=== PATIENT | female | born 1935 | race Caucasian/White ===

== ENCOUNTER 2016-04-08 03:03 | Emergency (ER) | payer OTHER ==
[~2016-04-08] VITALS: Ht 160 cm; Wt 72.3 kg
[~2016-04-08 03:03] MED LIST: ACID CONTROL150 MG PO; AMITIZA24 MICROGR PO; AMLODIPINE BESY10 MG PO; ASPIR 8181 MG PO; ASPIR-LOW81 MG PO; ASPIR-MOX IB T325 MG PO; ASPIRIN81 M2 PO; ATHENOL325 MG PO; ATIVAN0.5 MG PO; ATIVAN1 MG PO; ATORVASTATIN CA20 MG PO; BACTRIM,SEPT1 TABLET PO; BENTYL10 MG PO; BENTYL20 MG PO; BUSPAR10 MG PO; BUSPAR15 MG PO; BUSPAR7.5 MG PO; BUSPIRONE HCL10 MG PO; BUSPIRONE HCL7.5 MG PO; Buspar PO; CALCIUM 600 WI1 EACH PO; CALCIUM600 M1 PO; CARAFATE1 GM PO; CARAFATE100 MG/ML PO; CHILDREN'S ASPI81 M1 PO; CIPRO250 MG PO; CLOPIDOGREL75 MG PO; COLACE100 MG PO; DILAUDID4 MG PO; DOCUSATE SODIU100 MG PO; DONNATAL1 TABLET PO; DRISDOL50000 UNIT PO; DULCOLAX10 MG PR; DUONEB 2.5-0.5 M3 ML AEROSOL; EFFEXOR XR150 MG PO; EFFEXOR XR75 MG PO; EFFEXOR75 MG PO; ERGOCALCIF50000 UNIT PO; FAMOTIDINE20 MG PO; FIORICET,ESG1 TABLET PO; FLAGYL500 MG PO; FLEET ENEMA-AD118 ML PR; FOSAMAX70 MG PO; HYDROCODON-ACE1 EAC7 PO; Halfprin PO; IMDUR30 MG PO; ISOSORBIDE DINI30 MG PO; ISOSORBIDE MONO30 MG PO; KEFLEX500 MG PO; LIPITOR20 MG PO; LOPRESSOR50 MG PO; LORAZEPAM0.5 MG PO; Lipitor PO; Lopressor PO; METOPROLOL SUCC50 MG PO; METOPROLOL TART50 MG PO; METRONIDAZOLE500 MG PO; MIRALAX17 GM PO; MOBIC7.5 MG PO; NICOTINE PATCH1 EAC2 TD; NITROSTAT0.4 MG PO; NITROSTAT0.4 MG SL; Nitrostat,NitroQuick SL; OMEPRAZOLE20 MG PO; ONDANSETRON ODT4 MG PO; OXAYDO5 MG PO; OXYCODONE HCL5 MG PO; PANTOPRAZOLE SO20 MG PO; PEPCID20 MG PO; PERCOCET 5/31 TABLET PO; PHILLIPS'400 MG/5 M PO; PLAVIX75 MG PO; PRILOSEC40 MG PO; PROMETHAZINE HC25 M1 PO; PROTONIX20 MG PO; PROTONIX40 MG PO; Plavix PO; Protonix PO; Proventil,Ventolin H IH; ROXICODONE5 MG PO; SENNA PLUS TAB1 EACH PO; SENNA8.6 M1 PO; TRAMADOL HCL50 MG PO; TYLENOL REGULA325 MG PO; Tums,OsCal PO; ULTRAM50 MG PO; VENLAFAXINE HC150 M1 PO; VENLAFAXINE HC150 MG PO; VENLAFAXINE HCL75 M3 PO; VICODIN,LORT1 TABLET PO; ZANTAC75 M1 PO; ZOFRAN ODT4 MG PO; Zithromax PO; predniSONE PO
[2016-04-08 03:26] LABS: HEMATOCRIT 49.2 % (36.0-46.0); MCH 29.6 PG (29.0-34.0); MCHC 34.1 G/DL (30.0-36.0); MCV 86.8 FL (83-99); PLATELET COUNT 337 K/uL (156-360); RBC DIS.WIDTH-CV 13.7 % (11.8-14.6); RBC DIS.WIDTH-SD 43.1 % (39-53); RED BLOOD COUNT 5.67 M/uL (3.80-5.20); WHITE BLOOD COUNT 8.5 K/uL (4.1-10.2)
[2016-04-08 03:35] LABS: CHLORIDE 105 mEq/L (99-109); POTASSIUM 3.5 mEq/L (3.7-5.4); SODIUM 142 mEq/L (136-147)
[2016-04-08 03:37] LABS: GLUCOSE 148 mg/dL (70-99)
[2016-04-08 03:38] LABS: ANION GAP 12 MEQ/L (2-14)
[2016-04-08 03:39] LABS: TOTAL BILIRUBIN 0.4 mg/dL (0.0-1.0)
[2016-04-08 03:41] LABS: ALKALINE PHOSPHATASE 190 IU/L (3-129); GFR ESTIMATE (CALCULATED) 39 mL/min/
[2016-04-08 03:42] LABS: UREA NITROGEN (BUN) 15 mg/dL (9-23)
[2016-04-08 09:42] LABS: ADD MIUA? YES; BILIRUBIN NEGATIVE; BLOOD TRACE; COLOR YELLOW ((YELLOW)); GLUCOSE (STRIP) NEGATIVE; KETONES NEGATIVE; LEUKOCYTES SMALL; NITRITE NEGATIVE; PROTEIN (STRIP) TRACE; SPECIFIC GRAVITY 1.021 (1.000-1.030)
[2016-04-08] MEDS ORDERED: CITRATE OF MAG296 ML PO (09:54)
[2016-04-08] MEDS ORDERED: ZOFRAN ODT4 MG PO (09:54)
[2016-04-08 10:08] LABS: BACTERIA NONE SEEN; CASTS NONE SEEN /LPF; CRYSTALS NONE SEEN; EPITHELIAL CELLS RARE; MUCUS NONE SEEN; PATHOLOGICAL CAST NONE SEEN; RED BLOOD CELLS 0-5 /HPF (0-5); SMALL ROUND CELL NONE SEEN; UCUL ADDED? NO; YEAST-LIKE CELL PRESENT
[2016-04-08 10:21] VITALS: BP 143/69
== END 2016-04-08 10:31 | disposition home or self-care (01) ==
LOC: EME 03:03
DX: R10.9 Unspecified abdominal pain (principal); E78.5 Hyperlipidemia, unspecified; I10 Essential (primary) hypertension; I25.2 Old myocardial infarction; F17.200 Nicotine dependence, unspecified, uncomplicated; Z95.5 Presence of coronary angioplasty implant and graft; Z88.0 Allergy status to penicillin; Z91.041 Radiographic dye allergy status
CPT/HCPCS: 74176; 80053; 81003; 85027; 99281; 99284

== ENCOUNTER 2016-05-30 15:41 | Emergency (ER) | payer OTHER ==
[~2016-05-30] VITALS: Ht 160 cm; Wt 70.3 kg
[~2016-05-30 15:41] MED LIST changes: +CITRATE OF MAG296 ML PO
[2016-05-30 16:42] LABS: EOSINOPHIL COUNT 0.4 K/uL (0-0.3); IMMATURE GRANULOCYTE (%) 0.1 % (0.0-0.7); IMMATURE GRANULOCYTE COUNT 0.1 K/uL; LYMPHOCYTE COUNT 1.9 K/uL (1.0-2.8); MCH 29.5 PG (29.0-34.0); MCHC 33.4 G/DL (30.0-36.0); MCV 88.2 FL (83-99); MEAN PLAT.VOLUME 9.5 uM^3 (9.5-12.4); MONOCYTE (%) 7.9 % (3-12); MONOCYTE COUNT 0.7 K/uL (0-0.8); NEUTROPHIL COUNT 5.2 K/uL (1.8-6.4); PLATELET COUNT 292 K/uL (156-360); RBC DIS.WIDTH-CV 12.9 % (11.8-14.6); RBC DIS.WIDTH-SD 40.4 % (39-53); RED BLOOD COUNT 4.65 M/uL (3.80-5.20); WHITE BLOOD COUNT 8.3 K/uL (4.1-10.2)
[2016-05-30 16:50] LABS: CHLORIDE 107 mEq/L (99-109); POTASSIUM 3.9 mEq/L (3.7-5.4); SODIUM 142 mEq/L (136-147)
[2016-05-30 16:52] LABS: GLUCOSE 77 mg/dL (70-99)
[2016-05-30 16:53] LABS: ANION GAP 8 MEQ/L (2-14)
[2016-05-30 16:54] LABS: TOTAL BILIRUBIN 0.2 mg/dL (0.0-1.0)
[2016-05-30 16:56] LABS: ALKALINE PHOSPHATASE 156 IU/L (3-129); GFR ESTIMATE (CALCULATED) 36 mL/min/
[2016-05-30 17:01] LABS: TROP-I INTERPRETATION NEGATIVE; TROPONIN-I < 0.01 ng/mL (0.0-0.30)
[2016-05-30 17:25] LABS: UREA NITROGEN (BUN) 16 mg/dL (9-23)
[2016-05-30 20:31] VITALS: BP 145/68
== END 2016-05-30 20:44 | disposition home or self-care (01) ==
LOC: EME → EDBD 15:41 → EME 20:44
PROVIDERS: Emergency Medicine
DX: R10.13 Epigastric pain (principal); J45.909 Unspecified asthma, uncomplicated; J44.9 Chronic obstructive pulmonary disease, unspecified; E78.5 Hyperlipidemia, unspecified; I10 Essential (primary) hypertension; K21.9 Gastro-esophageal reflux disease without esophagitis; I25.2 Old myocardial infarction; Z98.61 Coronary angioplasty status; F17.200 Nicotine dependence, unspecified, uncomplicated
CPT/HCPCS: 71020; 74020; 74176; 80053; 84484; 85025; 93005; 99281; 99285; J2270; J2405

== ENCOUNTER 2016-10-22 06:46 | Emergency (ER) | payer OTHER ==
[~2016-10-22] VITALS: Ht 160 cm; Wt 72.3 kg
[2016-10-22 07:32] LABS: BASOPHIL COUNT 0.1 K/uL (0-0.1); EOSINOPHIL (%) 5.3 % (0-5); EOSINOPHIL COUNT 0.5 K/uL (0-0.3); HEMATOCRIT 41.7 % (36.0-46.0); IMMATURE GRANULOCYTE (%) 0.2 % (0.0-0.7); LYMPHOCYTE COUNT 2.2 K/uL (1.0-2.8); MCH 28.7 PG (29.0-34.0); MCHC 32.6 G/DL (30.0-36.0); MONOCYTE (%) 8.9 % (3-12); MONOCYTE COUNT 0.8 K/uL (0-0.8); NEUTROPHIL (%) 59.1 % (45-76); PLATELET COUNT 325 K/uL (156-360); RBC DIS.WIDTH-CV 13.2 % (11.8-14.6); RBC DIS.WIDTH-SD 42.5 % (39-53); RED BLOOD COUNT 4.74 M/uL (3.80-5.20); WHITE BLOOD COUNT 8.4 K/uL (4.1-10.2)
[2016-10-22 08:01] LABS: CHLORIDE 106 mEq/L (99-109); POTASSIUM 3.9 mEq/L (3.7-5.4); SODIUM 137 mEq/L (136-147)
[2016-10-22 08:04] LABS: GLUCOSE 106 mg/dL (70-99)
[2016-10-22 08:05] LABS: ANION GAP 7 MEQ/L (2-14)
[2016-10-22 08:06] LABS: TOTAL BILIRUBIN 0.3 mg/dL (0.0-1.0)
[2016-10-22 08:07] LABS: ALKALINE PHOSPHATASE 171 IU/L (3-129); GFR ESTIMATE (CALCULATED) 42 mL/min/
[2016-10-22 08:08] LABS: UREA NITROGEN (BUN) 17 mg/dL (9-23)
[2016-10-22 08:11] LABS: LIPASE 26 U/L (1.0-51.0)
[2016-10-22 08:23] LABS: ADD MIUA? YES; BILIRUBIN NEGATIVE; BLOOD NEGATIVE; COLOR YELLOW ((YELLOW)); GLUCOSE (STRIP) NEGATIVE; KETONES NEGATIVE; LEUKOCYTES MODERATE; NITRITE NEGATIVE; PROTEIN (STRIP) 30; SPECIFIC GRAVITY 1.024 (1.000-1.030); UROBILINOGEN 0.2 MG/DL (0.2-1.0)
[2016-10-22 08:29] LABS: BACTERIA RARE /HPF; CALCIUM OXALATE CRYSTALS 1+ /HPF; EPITHELIAL CELLS RARE /HPF; HYALINE CASTS 0-5 /LPF; MUCUS TRACE /LPF
[2016-10-22] MEDS ORDERED: BENTYL20 MG PO (09:32)
[2016-10-22] MEDS ORDERED: KEFLEX500 MG PO (09:40)
[2016-10-22 11:02] VITALS: BP 164/73
== END 2016-10-22 11:00 | disposition home or self-care (01) ==
LOC: EME 06:46
PROVIDERS: Emergency Medicine
DX: R10.13 Epigastric pain (principal); I10 Essential (primary) hypertension; E78.5 Hyperlipidemia, unspecified; J44.9 Chronic obstructive pulmonary disease, unspecified; K21.9 Gastro-esophageal reflux disease without esophagitis; K59.00 Constipation, unspecified; I25.2 Old myocardial infarction; Z95.5 Presence of coronary angioplasty implant and graft; G89.29 Other chronic pain; F32.9 Major depressive disorder, single episode, unspecified; F41.9 Anxiety disorder, unspecified; F17.200 Nicotine dependence, unspecified, uncomplicated; Z88.0 Allergy status to penicillin
CPT/HCPCS: 80053; 81003; 83690; 85025; 93005; 99281; 99285

== ENCOUNTER 2016-12-03 15:00 | Inpatient (IN) | payer OTHER ==
[~2016-12-03] VITALS: Ht 160 cm; Wt 70.5 kg
[~2016-12-03 15:00] MED LIST changes: -EFFEXOR75 MG PO
[2016-12-03 15:31] LABS: EOSINOPHIL (%) 5.1 % (0-5); EOSINOPHIL COUNT 0.4 K/uL (0-0.3); HEMATOCRIT 47.1 % (36.0-46.0); IMMATURE GRANULOCYTE (%) 0.2 % (0.0-0.7); INSTRUMENT ABS NEUTROPHIL CT 4.9 K/uL; LYMPHOCYTE COUNT 2.5 K/uL (1.0-2.8); MCH 28.9 PG (29.0-34.0); MCHC 32.7 G/DL (30.0-36.0); MCV 88.4 FL (83-99); MEAN PLAT.VOLUME 9.2 uM^3 (9.5-12.4); MONOCYTE (%) 8.5 % (3-12); MONOCYTE COUNT 0.7 K/uL (0-0.8); NEUTROPHIL (%) 56.5 % (45-76); NEUTROPHIL COUNT 4.9 K/uL (1.8-6.4); PLATELET COUNT 348 K/uL (156-360); RBC DIS.WIDTH-CV 13.1 % (11.8-14.6); RBC DIS.WIDTH-SD 42.3 % (39-53); RED BLOOD COUNT 5.33 M/uL (3.80-5.20); WHITE BLOOD COUNT 8.6 K/uL (4.1-10.2)
[2016-12-03 15:39] LABS: PROTHROMBIN TIME 11.1 SEC (10.2-12.9)
[2016-12-03 15:41] LABS: PTT 33.5 SEC (25-37)
[2016-12-03 15:52] LABS: TROP-I INTERPRETATION NEGATIVE; TROPONIN-I 0.01 ng/mL (0.0-0.30)
[2016-12-03 16:45] LABS: CHLORIDE 102 mEq/L (99-109); POTASSIUM 4.4 mEq/L (3.7-5.4); SODIUM 139 mEq/L (136-147)
[2016-12-03 16:46] LABS: GLUCOSE 94 mg/dL (70-99)
[2016-12-03 16:48] LABS: ANION GAP 9 MEQ/L (2-14)
[2016-12-03 16:50] LABS: GFR ESTIMATE (CALCULATED) 39 mL/min/
[2016-12-03 16:51] LABS: UREA NITROGEN (BUN) 15 mg/dL (9-23)
[2016-12-03] MEDS ORDERED: ASPIR 8181 M1 PO (17:09)
[2016-12-03] MEDS ORDERED: EFFEXOR XR150 MG PO (17:09)
[2016-12-03] MEDS ORDERED: NITROSTAT0.4 MG SL (17:11)
[2016-12-03] MEDS ORDERED: HYDROCODON-ACE1 EAC7 PO (17:11)
[2016-12-03] MEDS ORDERED: ATIVAN1 MG PO (17:11)
[2016-12-03 20:47] VITALS: BP 128/70
[2016-12-03 21:33] LABS: TROP-I INTERPRETATION NEGATIVE; TROPONIN-I < 0.01 ng/mL (0.0-0.30)
[2016-12-04] VITALS (7 sets, daily range): BP systolic 95–163; BP diastolic 57–79
[2016-12-04 03:46] LABS: TROP-I INTERPRETATION NEGATIVE; TROPONIN-I 0.02 ng/mL (0.0-0.30)
[2016-12-05 00:40] VITALS: BP 163/78
[2016-12-05 04:33] VITALS: BP 132/62
[2016-12-05 07:47] VITALS: BP 138/67
[2016-12-05] MEDS ORDERED: Z-TUSS AC LIQU473 ML PO (13:21)
[2016-12-05] MEDS ORDERED: LEVAQUIN500 MG PO (13:21)
== END 2016-12-05 14:04 | disposition home or self-care (01) | DRG 190 ==
LOC: EME 15:00 → 5EAST 16:50 → EDOF 16:50 → ENRESERV 17:08 → 5EAST 19:09 → ENPENDDIS 12-05 → 5EAST 12-05 14:04
PROVIDERS: Emergency Medicine; Family Medicine
DX: J44.0 Chronic obstructive pulmonary disease with (acute) lower respiratory infection (principal); J18.9 Pneumonia, unspecified organism; E78.5 Hyperlipidemia, unspecified; I10 Essential (primary) hypertension; I25.10 Atherosclerotic heart disease of native coronary artery without angina pectoris; K21.9 Gastro-esophageal reflux disease without esophagitis; K59.00 Constipation, unspecified; F32.9 Major depressive disorder, single episode, unspecified; F41.9 Anxiety disorder, unspecified; F17.200 Nicotine dependence, unspecified, uncomplicated; I25.2 Old myocardial infarction; Z95.5 Presence of coronary angioplasty implant and graft; Z82.49 Family history of ischemic heart disease and other diseases of the circulatory system; Z79.02 Long term (current) use of antithrombotics/antiplatelets; Z79.82 Long term (current) use of aspirin; Z88.0 Allergy status to penicillin
CPT/HCPCS: 71010; 80048; 84484; 85025; 85610; 85730; 87040; 93005; 94640; 94640 76; 94760; 99202; 99281; 99285; J0456; J0696; J7050

== ENCOUNTER 2016-12-25 19:01 | Emergency (ER) | payer OTHER ==
[~2016-12-25] VITALS: Ht 160 cm; Wt 70.4 kg
[~2016-12-25 19:01] MED LIST changes: +ASPIR 8181 M1 PO; +LEVAQUIN500 MG PO; +Z-TUSS AC LIQU473 ML PO
[2016-12-25 19:38] LABS: MCH 28.7 PG (29.0-34.0); MCHC 32.6 G/DL (30.0-36.0); MEAN PLAT.VOLUME 9.4 uM^3 (9.5-12.4); PLATELET COUNT 352 K/uL (156-360); RBC DIS.WIDTH-CV 13.2 % (11.8-14.6); RBC DIS.WIDTH-SD 42.5 % (39-53); RED BLOOD COUNT 5.34 M/uL (3.80-5.20); WHITE BLOOD COUNT 10.1 K/uL (4.1-10.2)
[2016-12-25 20:25] LABS: CHLORIDE 105 mEq/L (99-109); POTASSIUM 4.2 mEq/L (3.7-5.4); SODIUM 137 mEq/L (136-147)
[2016-12-25 20:27] LABS: GLUCOSE 92 mg/dL (70-99)
[2016-12-25 20:28] LABS: ANION GAP 9 MEQ/L (2-14)
[2016-12-25 20:29] LABS: TOTAL BILIRUBIN 0.3 mg/dL (0.0-1.0)
[2016-12-25 20:30] LABS: ALKALINE PHOSPHATASE 175 IU/L (3-129)
[2016-12-25 20:31] LABS: GFR ESTIMATE (CALCULATED) 36 mL/min/
[2016-12-25 20:32] LABS: UREA NITROGEN (BUN) 21 mg/dL (9-23)
[2016-12-25 20:59] LABS: ADD MIUA? YES; BILIRUBIN NEGATIVE; BLOOD SMALL; COLOR YELLOW ((YELLOW)); GLUCOSE (STRIP) NEGATIVE; KETONES NEGATIVE; LEUKOCYTES TRACE; NITRITE NEGATIVE; PROTEIN (STRIP) NEGATIVE; SPECIFIC GRAVITY 1.019 (1.000-1.030); UROBILINOGEN 0.2 MG/DL (0.2-1.0)
[2016-12-25 21:04] LABS: BACTERIA RARE /HPF; EPITHELIAL CELLS RARE /HPF; HYALINE CASTS 0-5 /LPF; MUCUS TRACE /LPF; RED BLOOD CELLS 0-5 /HPF (0-5); UCUL ADDED? NO; WHITE BLOOD CELLS 0-5 /HPF (0-5)
[2016-12-25] MEDS ORDERED: CITRATE OF MAG296 ML PO (22:18)
[2016-12-25] MEDS ORDERED: ULTRAM50 MG PO (22:18)
[2016-12-25 22:47] VITALS: BP 156/81
== END 2016-12-25 22:48 | disposition home or self-care (01) ==
LOC: EME 19:01
DX: R10.32 Left lower quadrant pain (principal); J44.9 Chronic obstructive pulmonary disease, unspecified; E78.5 Hyperlipidemia, unspecified; I10 Essential (primary) hypertension; I25.2 Old myocardial infarction; K21.9 Gastro-esophageal reflux disease without esophagitis; Z98.61 Coronary angioplasty status; Z79.02 Long term (current) use of antithrombotics/antiplatelets; Z79.82 Long term (current) use of aspirin; F17.200 Nicotine dependence, unspecified, uncomplicated
CPT/HCPCS: 74022; 74176; 80053; 81003; 85027; 99281; 99285; J7040; J7120

== ENCOUNTER 2017-01-03 09:05 | Emergency (ER) | payer OTHER ==
[~2017-01-03] VITALS: Ht 160 cm; Wt 71.4 kg
[2017-01-03 09:58] LABS: HEMATOCRIT 46.2 % (36.0-46.0); MCH 28.7 PG (29.0-34.0); MCHC 32.7 G/DL (30.0-36.0); MCV 87.8 FL (83-99); MEAN PLAT.VOLUME 9.6 uM^3 (9.5-12.4); PLATELET COUNT 330 K/uL (156-360); RBC DIS.WIDTH-CV 12.9 % (11.8-14.6); RBC DIS.WIDTH-SD 41.5 % (39-53); RED BLOOD COUNT 5.26 M/uL (3.80-5.20); WHITE BLOOD COUNT 7.9 K/uL (4.1-10.2)
[2017-01-03 10:08] LABS: CHLORIDE 106 mEq/L (99-109); POTASSIUM 3.6 mEq/L (3.7-5.4); SODIUM 139 mEq/L (136-147)
[2017-01-03 10:11] LABS: GLUCOSE 108 mg/dL (70-99)
[2017-01-03 10:12] LABS: ANION GAP 9 MEQ/L (2-14); TOTAL BILIRUBIN 0.4 mg/dL (0.0-1.0)
[2017-01-03 10:14] LABS: ALKALINE PHOSPHATASE 169 IU/L (3-129); GFR ESTIMATE (CALCULATED) 46 mL/min/
[2017-01-03 10:15] LABS: UREA NITROGEN (BUN) 13 mg/dL (9-23)
[2017-01-03 10:16] LABS: DIRECT BILIRUBIN 0.2 mg/dL (0.0-0.3)
[2017-01-03 10:18] LABS: LIPASE 20 U/L (1.0-51.0)
[2017-01-03 11:06] LABS: ADD MIUA? YES; BILIRUBIN NEGATIVE; BLOOD SMALL; COLOR YELLOW ((YELLOW)); GLUCOSE (STRIP) NEGATIVE; KETONES NEGATIVE; LEUKOCYTES MODERATE; NITRITE NEGATIVE; PROTEIN (STRIP) 30; SPECIFIC GRAVITY 1.018 (1.000-1.030); UROBILINOGEN 0.2 MG/DL (0.2-1.0)
[2017-01-03 11:14] LABS: BACTERIA NONE SEEN /HPF; EPITHELIAL CELLS RARE /HPF; MUCUS TRACE /LPF; RED BLOOD CELLS 0-5 /HPF (0-5); UCUL ADDED? YES; WHITE BLOOD CELLS 15-20 /HPF (0-5)
[2017-01-03] MEDS ORDERED: CIPRO500 MG PO (11:16)
[2017-01-03] MEDS ORDERED: MIRALAX119 GM PO (11:16)
[2017-01-03 11:27] VITALS: BP 196/70
== END 2017-01-03 11:41 | disposition home or self-care (01) ==
LOC: EME 09:05
PROVIDERS: Emergency Medicine
DX: N39.0 Urinary tract infection, site not specified (principal); R10.13 Epigastric pain; E78.5 Hyperlipidemia, unspecified; J44.9 Chronic obstructive pulmonary disease, unspecified; I10 Essential (primary) hypertension; I25.2 Old myocardial infarction; F17.200 Nicotine dependence, unspecified, uncomplicated; Z86.718 Personal history of other venous thrombosis and embolism; F32.9 Major depressive disorder, single episode, unspecified; F41.9 Anxiety disorder, unspecified; Z88.0 Allergy status to penicillin
CPT/HCPCS: 74176; 80048; 80076; 81003; 83690; 85027; 87086; 99281; 99285; J1885; J2405; J7030

== ENCOUNTER 2017-01-09 17:29 | Emergency (ER) | payer OTHER ==
[~2017-01-09] VITALS: Ht 160 cm; Wt 68.3 kg
[~2017-01-09 17:29] MED LIST changes: +CIPRO500 MG PO; +MIRALAX119 GM PO
[2017-01-09 18:32] LABS: ADD MIUA? YES; BILIRUBIN NEGATIVE; BLOOD NEGATIVE; COLOR YELLOW ((YELLOW)); GLUCOSE (STRIP) NEGATIVE; KETONES NEGATIVE; LEUKOCYTES NEGATIVE; NITRITE NEGATIVE; PROTEIN (STRIP) 30; SPECIFIC GRAVITY 1.024 (1.000-1.030); UROBILINOGEN 0.2 MG/DL (0.2-1.0)
[2017-01-09 18:46] LABS: HEMATOCRIT 45.2 % (36.0-46.0); MCH 29.2 PG (29.0-34.0); MCHC 33.2 G/DL (30.0-36.0); MCV 88.1 FL (83-99); MEAN PLAT.VOLUME 9.6 uM^3 (9.5-12.4); PLATELET COUNT 318 K/uL (156-360); RBC DIS.WIDTH-CV 13.2 % (11.8-14.6); RBC DIS.WIDTH-SD 42.8 % (39-53); RED BLOOD COUNT 5.13 M/uL (3.80-5.20); WHITE BLOOD COUNT 6.8 K/uL (4.1-10.2)
[2017-01-09 18:55] LABS: CHLORIDE 109 mEq/L (99-109); POTASSIUM 3.9 mEq/L (3.7-5.4); SODIUM 142 mEq/L (136-147)
[2017-01-09 18:57] LABS: GLUCOSE 107 mg/dL (70-99)
[2017-01-09 18:58] LABS: ANION GAP 11 MEQ/L (2-14)
[2017-01-09 18:59] LABS: TOTAL BILIRUBIN 0.4 mg/dL (0.0-1.0)
[2017-01-09 19:00] LABS: ALKALINE PHOSPHATASE 149 IU/L (3-129)
[2017-01-09 19:01] LABS: GFR ESTIMATE (CALCULATED) 42 mL/min/
[2017-01-09 19:02] LABS: UREA NITROGEN (BUN) 14 mg/dL (9-23)
[2017-01-09 19:17] LABS: BACTERIA RARE /HPF; CASTS NONE SEEN /LPF; CRYSTALS PRESENT; EPITHELIAL CELLS RARE /HPF; MUCUS NONE SEEN /LPF; RED BLOOD CELLS NONE SEEN /HPF (0-5); UCUL ADDED? NO; URIC ACID CRYSTALS 3+ /HPF; WHITE BLOOD CELLS RARE /HPF (0-5)
[2017-01-09 21:52] LABS: TROP-I INTERPRETATION NEGATIVE; TROPONIN-I < 0.01 ng/mL (0.0-0.30)
[2017-01-09 22:38] VITALS: BP 155/82
== END 2017-01-09 22:38 | disposition home or self-care (01) ==
LOC: EME → EDBD 17:29 → EME 17:29
PROVIDERS: Emergency Medicine
DX: R10.30 Lower abdominal pain, unspecified (principal); G89.29 Other chronic pain; R07.9 Chest pain, unspecified; R11.0 Nausea; I10 Essential (primary) hypertension; E78.5 Hyperlipidemia, unspecified; Z95.5 Presence of coronary angioplasty implant and graft; Z79.02 Long term (current) use of antithrombotics/antiplatelets; Z79.82 Long term (current) use of aspirin; F17.200 Nicotine dependence, unspecified, uncomplicated
CPT/HCPCS: 80053; 81003; 84484; 85027; 93005; 99281; 99285; J2270

== ENCOUNTER 2017-04-13 18:13 | Emergency (ER) | payer OTHER ==
[~2017-04-13] VITALS: Ht 160 cm; Wt 64.2 kg
[~2017-04-13 18:13] MED LIST changes: +CYCLOBENZAPRINE10 MG PO; +ONDANSETRON HCL4 MG PO
[2017-04-13 19:28] LABS: HEMATOCRIT 41.9 % (36.0-46.0); HEMOGLOBIN 14.3 G/DL (11.9-15.5); MCH 30.3 PG (29.0-34.0); MCHC 34.1 G/DL (30.0-36.0); MCV 88.8 FL (83-99); PLATELET COUNT 308 K/uL (156-360); RBC DIS.WIDTH-CV 13.2 % (11.8-14.6); RBC DIS.WIDTH-SD 43.6 % (39-53); RED BLOOD COUNT 4.72 M/uL (3.80-5.20); WHITE BLOOD COUNT 9.2 K/uL (4.1-10.2)
[2017-04-13 19:36] LABS: ALBUMIN 3.6 g/dL (3.2-4.8); CHLORIDE 103 mEq/L (99-109); POTASSIUM 3.8 mEq/L (3.7-5.4); SODIUM 138 mEq/L (136-147)
[2017-04-13 19:39] LABS: GLUCOSE 115 mg/dL (70-99); TOTAL PROTEIN 7.7 g/dL (6.4-8.3)
[2017-04-13 19:40] LABS: TOTAL BILIRUBIN 0.9 mg/dL (0.0-1.0)
[2017-04-13 19:41] LABS: SERUM ETHYL ALCOHOL < 10 mg/dL
[2017-04-13 19:42] LABS: ALKALINE PHOSPHATASE 150 IU/L (3-129); CREATININE 1.1 mg/dL (0.6-1.3); GFR ESTIMATE (CALCULATED) 51 mL/min/
[2017-04-13 19:43] LABS: UREA NITROGEN (BUN) 15 mg/dL (9-23)
[2017-04-13 19:44] LABS: AST (GOT) 12 IU/L (2-34)
[2017-04-13 19:45] LABS: ALT (GPT) 7 IU/L (3-49)
[2017-04-13 19:55] LABS: BASE EXCESS 3.1 mEq/L (-3 to +3); CARBOXY HGB 2.8 % (0-5); COMMENTS - BLOOD GASES A+C+; FI02 21 %; METHEMOGLOBIN 1.2 % (0-1.5); PCO2 38 mm Hg (35-45); PO2 65 mm Hg (80-100); SITE RR; pH 7.46 (7.35-7.45)
[2017-04-13 20:16] LABS: APPEARANCE SL.HAZY ((CLEAR)); BILIRUBIN NEGATIVE; BLOOD SMALL; COLOR YELLOW ((YELLOW)); GLUCOSE (STRIP) NEGATIVE; KETONES NEGATIVE; LEUKOCYTES MODERATE; NITRITE NEGATIVE; PROTEIN (STRIP) 30; SPECIFIC GRAVITY 1.019 (1.000-1.030)
[2017-04-13 20:27] LABS: PHENCYCLIDINE PRESUMPTIVE POSITIVE (25 ng/mL); THC CANNABINOIDS NEGATIVE (50 ng/mL)
[2017-04-13 20:28] LABS: AMPHETAMINE NEGATIVE (500 ng/mL); BARBITURATES NEGATIVE (200 ng/mL); BENZODIAZEPINES PRESUMPTIVE POSITIVE (150 ng/mL); BUPRENORPHINE NEGATIVE (10 ng/mL); COCAINE NEGATIVE (150 ng/mL); METHADONE NEGATIVE (200 ng/mL); METHAMPHETAMINE NEGATIVE (500 ng/mL); OPIATES (MORPHINE) NEGATIVE (100 ng/mL); OXYCODONE NEGATIVE (100 ng/mL); PROPOXYPHENE NEGATIVE (300 ng/mL); TRICYCLIC ANTIDEPRESSANTS NEGATIVE (300 ng/mL)
[2017-04-13 20:54] LABS: BACTERIA RARE /HPF; EPITHELIAL CELLS RARE /HPF; MUCUS TRACE /LPF; RED BLOOD CELLS 0-5 /HPF (0-5); WHITE BLOOD CELLS 15-20 /HPF (0-5)
[2017-04-13 21:03] LABS: BENZODIAZEPINES, URINE SCREEN Negative (200 ng/mL)
[2017-04-13] MEDS ORDERED: LEVAQUIN750 MG PO (21:25)
[2017-04-13] MEDS ORDERED: VENTOLIN HFA18 GM IH (21:25)
[2017-04-13 22:13] VITALS: BP 144/88
== END 2017-04-13 22:14 | disposition home or self-care (01) ==
LOC: EME 18:13
PROVIDERS: Emergency Medicine
DX: J18.9 Pneumonia, unspecified organism (principal); J44.0 Chronic obstructive pulmonary disease with (acute) lower respiratory infection; N39.0 Urinary tract infection, site not specified; F33.1 Major depressive disorder, recurrent, moderate; F41.1 Generalized anxiety disorder; Z02.83 Encounter for blood-alcohol and blood-drug test; F17.200 Nicotine dependence, unspecified, uncomplicated; I10 Essential (primary) hypertension; E78.5 Hyperlipidemia, unspecified; I25.2 Old myocardial infarction; K21.9 Gastro-esophageal reflux disease without esophagitis; Z95.5 Presence of coronary angioplasty implant and graft; Z88.0 Allergy status to penicillin
CPT/HCPCS: 36600; 71046; 80053; 81003; 82803; 84999; 85027; 90839; 99281; 99285; G0480

== ENCOUNTER 2017-07-15 08:15 | Emergency (ER) | payer OTHER ==
[~2017-07-15] VITALS: Ht 160 cm; Wt 60.7 kg
[~2017-07-15 08:15] MED LIST changes: +LEVAQUIN750 MG PO; +VENTOLIN HFA18 GM IH
[2017-07-15 08:57] LABS: BASOPHIL (%) 0.5 % (0-1); BASOPHIL COUNT 0.1 K/uL (0-0.1); EOSINOPHIL (%) 6.6 % (0-5); EOSINOPHIL COUNT 0.6 K/uL (0-0.3); HEMATOCRIT 44.7 % (36.0-46.0); HEMOGLOBIN 15.1 G/DL (11.9-15.5); IMMATURE GRANULOCYTE (%) 0.3 % (0.0-0.7); LYMPHOCYTE (%) 25.5 % (15-42); LYMPHOCYTE COUNT 2.4 K/uL (1.0-2.8); MCH 30.9 PG (29.0-34.0); MCHC 33.8 G/DL (30.0-36.0); MCV 91.4 FL (83-99); MONOCYTE (%) 7.8 % (3-12); MONOCYTE COUNT 0.7 K/uL (0-0.8); NEUTROPHIL (%) 59.3 % (45-76); NEUTROPHIL COUNT 5.4 K/uL (1.8-6.4); PLATELET COUNT 268 K/uL (156-360); RBC DIS.WIDTH-CV 13.7 % (11.8-14.6); RED BLOOD COUNT 4.89 M/uL (3.80-5.20); WHITE BLOOD COUNT 9.2 K/uL (4.1-10.2)
[2017-07-15 09:08] LABS: CHLORIDE 104 mEq/L (99-109); POTASSIUM 4.9 mEq/L (3.7-5.4); SODIUM 140 mEq/L (136-147)
[2017-07-15 09:10] LABS: GLUCOSE 94 mg/dL (70-99)
[2017-07-15 09:14] LABS: CREATININE 1.1 mg/dL (0.6-1.3); GFR ESTIMATE (CALCULATED) 51 mL/min/
[2017-07-15 09:15] LABS: UREA NITROGEN (BUN) 17 mg/dL (9-23)
[2017-07-15 09:19] LABS: TROP-I INTERPRETATION NEGATIVE; TROPONIN-I < 0.01 ng/mL (0.0-0.30)
[2017-07-15 11:30] LABS: TROP-I INTERPRETATION NEGATIVE; TROPONIN-I < 0.01 ng/mL (0.0-0.30)
[2017-07-15 12:43] VITALS: BP 145/94
== END 2017-07-15 12:46 | disposition home or self-care (01) ==
LOC: EME → EDBD 08:15 → EME 08:15
PROVIDERS: Emergency Medicine
DX: R07.89 Other chest pain (principal); F41.9 Anxiety disorder, unspecified; R42 Dizziness and giddiness; M79.602 Pain in left arm; I25.2 Old myocardial infarction; E78.5 Hyperlipidemia, unspecified; I10 Essential (primary) hypertension; Z95.5 Presence of coronary angioplasty implant and graft; J44.9 Chronic obstructive pulmonary disease, unspecified; Z79.02 Long term (current) use of antithrombotics/antiplatelets; Z79.82 Long term (current) use of aspirin; F17.200 Nicotine dependence, unspecified, uncomplicated
CPT/HCPCS: 71045; 80048; 84484; 85025; 93005; 99281; 99284; J2405